=== PATIENT | male | born 1985 | race Caucasian/White ===

== ENCOUNTER 2025-04-09 13:37 | Emergency (ER) | payer OTHER, SELFPAY ==
--- OUTSIDE RECORDS SUMMARY | 2025-04-09 13:41 | XMS_ITS | Encounter Summary ---
Author Organization [facility] Address [address] [place] [address] Care Team Providers Care Campus Administrator Name Role Phone Oneyda Alejo MD Primary Care Provider [phone] Encounter Details Date Type Department Care Team (Late Contact Info) Description 03/11/2025 Results Follow-Up [facility] [employer] [place] [address] [place] [address] Oneyda Alejo MD [address] [place] [address] TSH, LIPID PANEL, COMPREHENSIVE METABOLIC PANEL, CBC WITH DIFFERENTIAL Social History Tobacco Use Types Packs/Day Years Used Date Smoking Tobacco: Some Days Cigarettes Smokeless Tobacco: Never Comments:i use nicotine but i do not use tabacco. e-cigarettes. Alcohol Use Standard Drinks/Week Comments No 0 (1 standard drink = 0.6 oz pur e alcohol) Sex and Gender Information Value Date Recorded Sex Assigned at Not on file Legal Sex Male 2:16 PM CDT Gender Identity Not on file Sexual Orientation Not on file documented as of this encounter Plan of Treatment Upcoming Encounters Date Type Department Care Team ([facility] Contact Info) Description 09/15/2025 8:00 AM CDT Office Visit [facility] [employer] [place] [address] [place] [address] Oneyda Alejo MD [address] [place] [address] documented as of this encounter Visit Diagnoses Not on filedocumented in this encounter Care Teams Campus Administrator Relationship Specialty Start Date End Date Oneyda Alejo MD [address] [place] [address] PCP - General Internal Medicine 07/15/24 documented as of this encounter
--- OUTSIDE RECORDS SUMMARY | 2025-04-09 13:41 | XMS_ITS | Clinical Summary ---
Author Organization [address] Address [address] [place] [address] Care Team Providers Care Knife Changer Name Role Phone No, Physician Primary Care Provider [phone] Allergies No known active allergies Medications lisinopril-hydro CHLOROthiazide (ZESTORETIC) 20-25 mg per tablet Take 1 tablet by mouth daily 09/16/2024 Active rosuvastatin (CRESTOR) 10 mg tablet Take 1 tablet (10 mg total) by mouth daily 09/16/2024 Active Active Problems No known active problems Medical History Medical History Date Comments Anxiety Hypertension Hyperlipidemia Social History Tobacco Use Types Packs/Day Years Used Date Smoking Tobacco: Never Smokeless Tobacco: Never Tobacco Cessation:Counseling Given: Not Answered Personal Safety Answer Date Recorded Have you ever been in or are you currently in a harmful physical or emotional relationship or is someone making you feel afraid or unsafe? Denies 10/18/2024 Sex and Gender Information Value Date Recorded Sex Assigned at Not on file Legal Sex Male 5:50 PM BELT LOOP MAKER Gender Identity Not on file Sexual Orientation Not on file Obstetrics History Last Filed Vital Signs Vital Sign Reading Time Taken Comments Blood Pressure 127/88 10/19/2024 12:45 AM BELT LOOP MAKER Pulse 93 10/19/2024 12:45 AM BELT LOOP MAKER Temperature 37.6 C (99.6 F) 10/18/2024 10:57 PM BELT LOOP MAKER Respiratory Rate 23 10/19/2024 12:45 AM BELT LOOP MAKER Oxygen Saturation 95% 10/19/2024 12:45 AM BELT LOOP MAKER Inhaled Oxygen Concentration - - Weight 86.2 kg (190 lb) 10/18/2024 10:57 PM BELT LOOP MAKER Height 165.1 cm (5' 5 ) 10/18/2024 10:57 PM BELT LOOP MAKER Body Mass Index 31.62 10/18/2024 10:57 PM BELT LOOP MAKER Plan of Treatment Health Maintenance Due Date Last Done Comments Depression Screening 1985 Hepatitis C Screening 1985 Varicella Vaccines (1 of 2 - 13+ 2-dose series) 1998 Regular Well Visit/Exam 18-64 2003 Covid-19 Vaccine ( - season) 2024 11/06/2021, 02/15/2021, 01/23/2021 DTaP/Tdap/Td Vaccine (7 - Td or Tdap) 07/19/2025 07/19/2015, 06/10/2000, 06/01/1991, Additional history exists Hepatitis B Screening Completed 04/17/2004, 004 Influenza Vaccine Completed 09/16/2024, , 08/09/2021, Additional history exists HPV Vaccines Aged Out No longer eligi ble based on patient's age to complete this topic Pneumococcal vaccine <65 Aged Out No longer eligible based on patient's age to complete this [place] [id number] Care Teams Knife Changer Relationship Specialty Start Date End Date No, Physician PCP - General 10/18/24
--- OUTSIDE RECORDS SUMMARY | 2025-04-09 13:41 | XMS_ITS | Clinical Summary ---
Author Organization [facility] [employer] [place] Address [address] [place] [address] Care Team Providers Care Automobile Engine Assembler Name Role Phone Oneyda Alejo MD Primary Care Provider [phone] Allergies No known active allergies Medications CHOLECALCIFEROL, VITAMIN D3, ORAL Take by mouth. Active busPIRone (BUSPAR) 10 mg tabletIndication s:Generalized anxiety disorder Take 1 Tablet (10 mg) by mouth 3 times daily as needed for Anxiety. 30 Tablet 1 03/19/2024 Active rosuvastatin (Crestor) 10 mg tabletIndication s:hyperlipidemia Take 1 Tablet (10 mg) by mouth daily. 90 Tablet 01/26/2025 Active lisinopril-hydro CHLOROthiazide (ZESTORETIC) 20-25 mg tabletIndication s:HTN (hypertension), benign Take 1 Tablet by mouth daily. 90 Tablet 01/26/2025 Active CYANOCOBALAMIN, VITAMIN B-12, ORAL Take by mouth. Active Active Problems Problem Noted Date Diagnosed Date Hyperlipidemia 03/17/2025 Obesity (BMI 30.0-34.9) 03/17/2025 Vitamin D deficiency 03/17/2025 Generalized anxiety disorder 08/19/2023 HTN (hypertension), benign 01/09/2022 Nicotine abuse 08/09/2021 Encounters Date Type Department Care Team Description 03/17/2025 8:30 AM CDT Office Visit [facility] [place] [address] [place] [address] Oneyda Alejo MD Routine physical examination (Primary Dx); HTN (hypertension), benign; Hyperlipidemia, unspecified hyperlipidemia type; Obesity (BMI 30.0-34.9); Vitamin D deficiency; Nicotine abuse; Generalized anxiety disorder 03/11/2025 Results Follow-Up [facility] at [place] [address] [place] [phone] Oneyda Alejo MD TSH, LIPID PANEL, COMPREHENSIVE METABOLIC PANEL, CBC WITH DIFFERENTIAL 03/10/2025 8:40 AM CDT Office Visit [facility] at [place] [address] [phone] Screening for condition (Primary Dx) 01/27/2025 2:00 PM SENIOR PORTFOLIO ANALYST Procedure visit [facility] at [place] [address] [facility] [address] [place] [address] Issue of repeat prescription (Primary Dx) 01/26/2025 Refill [facility] [employer] [place] [address] [address] Oneyda Alejo MD Hyperlipidemia, unspecified hyperlipidemia type; HTN (hypertension), benign 01/18/2025 External Device Data [facility] ABSTRACTION Provider, Abstract from Last 3 Months Immunizations Immunization Administration Dates Next Due (ADACEL/BOOSTRIX)(10 YR UP) TDAP VACCINE, 0.5ML, IM 07/19/2015 (PFIZER)(12 YR UP) COVID-19 VACCINE - EMERGENCY USE AUTHORIZATION, MRNA, [id number](PF) 30 MCG/0.3 ML IM SUSP 11/06/2021,02/15/2021,01/23/2021 INFLUENZA VACCINE QUADRIVALE NT 3 YR UP PF IM 09/05/2017 INFLUENZA VACCINE QUADRIVALENT 6 MOS UP IM 08/25,09/21/2018 INFLUENZA VACCINE QUADRIVALE NT 6 MOS UP PF IM 08/20/2023,08/09/2021,08/23/2020 INFLUENZA VACCINE TRIVALENT SPLIT VIRUS, (6 MOS UP), 0.5ML (PF), IM 09/16/2024 Family History Medical History Relation Name Comments Lung Cancer Father Romeo Goyal No Known Problems Half-Sister Alcohol abuse Maternal Grandfather Liver Disease Maternal Grandfather Ibis Gerhig's Disease Maternal Grandmother Depression Mother Diabetes Mother Unknown Paternal Grandfather Breast Cancer Paternal Grandmother No Known Problems Son Relation Name Status Comments Father Romeo Goyal (Age 75) Half-Sister Alive Maternal Grandfather Maternal Grandmother Mother Alive Paternal Grandfather Paternal Grandmother Son Alive Social History Tobacco Use Types Packs/Day Years Used Date Smoking Tobacco: Former Cigarettes 2016 Smokeless Tobacco: Never Tobacco Cessation:Counseling Given: Not Answered Comments:i use nicotine but i do not use tabacco. e-cigarettes. Alcohol Use Standard Drinks/Week Comments No 0 (1 standard drink = 0.6 oz pur e alcohol) Sex and Gender Information Value Date Recorded Sex Assigned at Not on file Legal Sex Male 2:16 PM CDT Gender Identity Not on file Sexual Orientation Not on file Last Filed Vital Signs Vital Sign Reading Time Taken Comments Blood Pressure 126/78 03/17/2025 7:56 AM CDT Pulse 84 03/17/2025 7:56 AM CDT Temperature 36.6 C (97.9 F) 03/17/2025 7:56 AM CDT Respiratory Rate 16 03/17/2025 7:56 AM CDT Oxygen Saturation 98% 03/17/2025 7:56 AM CDT Inhaled Oxygen Concentration - - Weight 88.5 kg (195 lb) 03/17/2025 7:56 AM CDT Height 167.6 cm (5' 6 ) 03/17/2025 7:56 AM CDT Body Mass Index 31.47 03/17/2025 7:56 AM CDT Plan of Treatment Upcoming Encounters Date Type Department Care Team (Late st Contact Info) Description 09/15/2025 8:00 AM CDT Office Visit [facility] [place] [address] [place] [address] Oneyda Alejo MD [address] [place] [address] Health Maintenance Due Date Last Done Comments HEPATITIS B VACCINES (1 of 3 - 19+ 3-dose series) 2004 COVID-19 Vaccine (4 - 2024-25 season) 2024 11/06/2021, 02/15/2021, 01/23/2021 DTAP/TDAP/TD VACCINES (2 - Td or Tdap) 07/19/2025 07/19/2015 Pre-Diabetes and Diabetes Screening 12/12/2025 12/12/2022, 02/08/2022, 08/23/2021 INFLUENZA VACCINE Completed 09/16/2024, , 08/09/2021, Additional history exists HPV VACCINES Aged Out No longer eligi ble based on patient's age to complete this topic Procedures Procedure Name Priority Date/Time Associated Diagnosis Comments CBC WITH DIFFERENTIAL Routine 03/10/2025 7:47 AM CDT Screening for condition COMPREHENSIVE METABOLIC PANEL Routine 03/10/2025 7:47 AM CDT Screening for condition LIPID PANEL Routine 03/10/2025 7:47 AM CDT Screening for condition TSH Routine 03/10/2025 7:47 AM CDT Screening for condition HEMOGLOBIN A1C Routine 12/12/2022 9:23 AM SENIOR PORTFOLIO ANALYST Encounter for routine adult health examination with abnormal findings from Last 3 Months or Most Recently Relevant to Health Maintenance Results * (ABNORMAL) CBC WITH DIFFERENTIAL (03/10/2025 7:47 AM CDT) WBC 5.4 3.8 - 10.8 Thousand/ uL [facility] RBC 5.66 4.20 - 5.80 Million/u L [facility] HEMOGLOBIN 17.2(H) 13.2 - 17.1 g/dL [facility] HEMATOCRIT 52.5(H) 38.5 - 50.0 % [facility] MCV 92.8 80.0 - 100.0 fL [facility] MCH 30.4 27.0 - 33.0 pg [facility] MCHC 32.8 32.0 - 36.0 g/dL [facility] Comment: For adults, a slight decrease in the calculated MCHC value (in the range of 30 to 32 g/dL) is most likely not clinically significant; however, it should be interpreted with caution in correlation with other red cell parameters and the patient's clinical condition. RDW 13.1 11.0 - 15.0 % [facility] PLATELETS 295 140 - 400 Thousand/ uL [facility] MPV 9.5 7.5 - 12.5 fL [facility] NEUTROPHIL ABSOLUTE 3,305 1,500 - 7,800 cells/uL [facility] LYMPHOCYTE ABSOLUTE 1,285 850 - 3,900 cells/uL [facility] MONOCYTE ABSOLUTE 610 200 - 950 cells/uL [facility] EOSINOPHIL ABSOLUTE 119 15 - 500 cells/uL [facility] BASOPHILS ABSOLUTE 81 0 - 200 cells/uL [facility] NEUTROPHIL 61.2 % [facility] LYMPHOCYTES 23.8 % [facility] MONOCYTE 11.3 % [facility] EOSINOPHILS 2.2 % [facility] BASOPHILS 1.5 % [facility] Comment: Test Performed at: [place] [address] [address] [place] [phone] [facility] Vo Blood 03/10/2025 7:47 AM CDT 03/11/2025 4:36 AM CDT Oneyda Alejo MD HEMATOLOGY ORDERABLES Final Re sult [facility] [phone] [place] [address] [address] [place] [phone] * TSH (03/10/2025 7:47 AM CDT) TSH 1.72 0.40 - 4.50 mIU/L [facility] Comment: Test Performed at: [email or web address] [address] [address] [place] [phone] [facility] Vo Blood 03/10/2025 7:47 AM CDT 03/11/2025 4:36 AM CDT us Oneyda Alejo MD CHEMISTRY ORDERABLES Final Res ult [facility] [phone] [place] [address] [address] [place] [phone] * (ABNORMAL) LIPID PANEL (03/10/2025 7:47 AM CDT) CHOLESTEROL 130 <200 mg/dL [facility] HDL 38(L) > OR = 40 mg/dL [facility] [employer] [facility] TRIGLYCERIDE 68 <150 mg/dL [facility] [employer] [facility] LDL CALCULATED 78 mg/dL (calc) [facility] Comment: Reference range: <100 Desirable range <100 mg/dL for primary prevention; <70 mg/dL for patients with CHD or diabetic patients with > or = 2 CHD risk factors. LDL-C is now calculated using the Brigido calculation, which is a validated novel method providing better accuracy than the Friedewald equation in the estimation of LDL-C. Robert PARIKH et al. SAL. 2013;310(19): 7696-6725 (http://education.[employer]/faq/XKK623) CHOL/HDL RATIO 3.4 <5.0 (calc) [facility] NON-HDL CHOLESTEROL 92 <130 mg/dL (calc) [email or web address] Comment: For patients with diabetes plus 1 major ASCVD risk factor, treating to a non-HDL-C goal of <100 mg/dL (LDL-C of <70 mg/dL) is considered a therapeutic option. Test Performed at: [place] [address] [address] [place] [phone] [facility] Blood 03/10/2025 7:47 AM CDT 03/11/2025 4:36 AM CDT us Oneyda Alejo MD CHEMISTRY ORDERABLES Final Res ult [facility] [phone] [place] [address] Administration [place] [phone] * COMPREHENSIVE METABOLIC PANEL (03/10/2025 7:47 AM CDT) GLUCOSE 96 65 - 99 mg/dL [facility] Comment: Fasting reference interval BUN 22 7 - 25 mg/dL [facility] CREATININE 1.10 0.60 - 1.26 mg/dL [facility] EGFR 88 > OR = 60 mL/min/1. 73m2 [facility] BUN/CREAT RATIO SEE NOTE: 6 - 22 (calc) [facility] Comment: Not Reported: BUN and Creatinine are within reference range. SODIUM 140 135 - 146 mmol/L [facility] [employer] [facility] POTASSIUM 4.2 3.5 - 5.3 mmol/L [facility] CHLORIDE 103 98 - 110 mmol/L [facility] CO2 25 20 - 32 mmol/L [facility] CALCIUM 9.5 8.6 - 10.3 mg/dL [facility] TOTAL PROTEIN 6.7 6.1 - 8.1 g/dL [facility] ALBUMIN 4.7 3.6 - 5.1 g/dL [facility] GLOBULIN 2.0 1.9 - 3.7 g/dL (calc) [facility] ALBUMIN/GLOBULIN RATIO 2.4 1.0 - 2.5 (calc) [facility] BILIRUBIN TOTAL 0.5 0.2 - 1.2 mg/dL [facility] [employer] [facility] ALKALINE PHOSPHATASE 57 36 - 130 U/L [facility] AST 19 10 - 40 U/L [facility] ALT 30 9 - 46 U/L [facility] Comment: Test Performed at: [place] [address] [address] [place] [phone] [facility] Blood 03/10/2025 7:47 AM CDT 03/11/2025 4:36 AM CDT us Oneyda Alejo MD CHEMISTRY ORDERABLES Final Res ult [facility] [phone] [facility] [place] [address] Administration [place] [phone] * HEMOGLOBIN A1C (12/12/2022 9:23 AM SENIOR PORTFOLIO ANALYST) HEMOGLOBIN A1C 5.0 <5.7 % of total Hgb [email or web address] Comment: For the purpose of screening for the presence of diabetes: <5.7% Consistent with the absence of diabetes 5.7-6.4% Consistent with increased risk for diabetes (prediabetes) > or =6.5% Consistent with diabetes This assay result is consistent with a decreased risk of diabetes. Currently, no consensus exists regarding use of hemoglobin A1c for diagnosis of diabetes in children. According to [place] Diabetes Association (ADA) guidelines, hemoglobin A1c <7.0% represents optimal control in non- diabetic patients. Different metrics may apply to specific patient populations. Standards of Medical Care in Diabetes(ADA). ESTIMATED AVERAGE GLUCOSE (MG/DL) 97 mg/dL [email or web address] ESTIMATED AVERAGE GLUCOSE (MMOL/L) 5.4 mmol/L [email or web address] Comment: Test Performed at: [employer] [address] [place] [address] Chilo Schmid D.O., MPH Blood 12/12/2022 9:23 AM SENIOR PORTFOLIO ANALYST 12/13/2022 5:03 AM SENIOR PORTFOLIO ANALYST Neena Trujillo [facility] CHEMISTRY ORDERABLES F inal Result [facility] [phone] [employer] [address] [place] [address] from Last 3 Months or Most Recently Relevant to Health Maintenance Insurance [employer] * Guarantor: [employer] Account Type Relation to Patient Date of Phone Billing Address Corporate Employer ATTN: BERNARDO TYLER [address] [address] Care Teams Automobile Engine Assembler Relationship Specialty Start Date End Date Oneyda Alejo MD [address] [place] [address] PCP - General Internal Medicine 07/15/24
--- OUTSIDE RECORDS SUMMARY | 2025-04-09 13:41 | XMS_ITS | Clinical Summary ---
Author Organization [facility] Address [address] [place] [address] Care Team Providers Care Lease Operator Name Role Phone Unavailable Primary Care Provider Unavailabl e Social History Tobacco Use Types Packs/Day Years Used Date Smoking Tobacco: Never Assessed Sex and Gender Information Value Date Recorded Sex Assigned at Not on file Legal Sex Male 5:32 PM CDT Gender Identity Not on file Sexual Orientation Not on file Plan of Treatment Health Maintenance Due Date Last Done Comments Annual Physical 1988 Hepatitis C 2003 DTaP, Tdap and Td Vaccines ( 1 - Tdap) 2004 Hepatitis B Vaccines (1 of 3 - 19+ 3-dose series) 2004 COVID-19 Vaccine ( - 2023-2 5 season) 2024 HPV Vaccines Aged Out No longer eligi ble based on patient's age to complete this topic Meningococcal B Vaccine Aged Out No l onger eligible based on patient's age to complete this topic Meningococcal Vaccine Aged Out No josef teresa eligible based on patient's age to complete this topic Pneumococcal Vaccine: Pediat rics (0 to 5 Years) and At-Risk Patients (6 to 49 Years) Aged Out No longer eligible b ased on patient's age to complete this topic RSV Immunizations Under 20 Months Aged Out No longer eligible based on patient's age to complete this topic
--- OUTSIDE RECORDS SUMMARY | 2025-04-09 13:41 | XMS_ITS | Referral Summary ---
Author Organization [address] Address [address] [place] [address] Care Team Providers Care Assistant Grocery Store Manager Name Role Phone No, Physician Primary Care Provider [phone] Allergies No known active allergies Medications lisinopril-hydro CHLOROthiazide (ZESTORETIC) 20-25 mg per tablet Take 1 tablet by mouth daily 09/16/2024 Active rosuvastatin (CRESTOR) 10 mg tablet Take 1 tablet (10 mg total) by mouth daily 09/16/2024 Active Active Problems No known active problems Social History Tobacco Use Types Packs/Day Years [...] on file Legal Sex Male 5:50 PM CHAMBER WALKER Gender Identity Not on file Sexual Orientation Not on file Last Filed Vital Signs Vital Sign Reading Time Taken Comments Blood Pressure 127/88 10/19/2024 12:45 AM CHAMBER WALKER Pulse 93 10/19/2024 12:45 AM CHAMBER WALKER Temperature 37.6 C (99.6 F) 10/18/2024 10:57 PM CHAMBER WALKER Respiratory Rate 23 10/19/2024 12:45 AM CHAMBER WALKER Oxygen Saturation 95% 10/19/2024 12:45 AM CHAMBER WALKER Inhaled Oxygen Concentration - - Weight 86.2 kg (190 lb) 10/18/2024 10:57 PM CHAMBER WALKER Height 165.1 cm (5' 5 ) 10/18/2024 10:57 PM CHAMBER WALKER Body Mass Index 31.62 10/18/2024 10:57 PM CHAMBER WALKER Plan of Treatment Not on file Insurance [employer] Care Teams Assistant Grocery Store Manager Relationship Specialty Start Date End Date No, Physician PCP - General 10/18/24
[2025-04-09 13:47] VITALS: BP 133/76; PULSE 86; RESP 16; TEMP 36.8; O2SAT 99
--- NOTE | 2025-04-09 14:24 | ED.GENADULT ---
HPI - General Adult General Chief complaint: Skin/Abscess/Foreign Body Stated complaint: pos poison tatianna on right toe Source: patient Mode of arrival: ambulatory Limitations: no limitations History of Present Illness HPI narrative: Pt presents for evaluation of a pruritic rash. Symptoms initially started on the right foot about 1.5 weeks ago. He now has involvement both lower extremities, right-sided his waist, and both upper extremities. No history of similar symptoms. He has not used any new lotions, soaps, detergents, topical products. He was working out in the yard and may have been exposed to poison tatianna. His know his symptoms on the left side of her neck. Related Data Home Medications Medication Instructions Recorded Confirmed Last Taken Type lisinopril-hydrochlorothiazide .ROUTE 04/09/25 Unknown History rosuvastatin .ROUTE 04/09/25 Unknown History Allergies Allergy/AdvReac Type Severity Reaction Status Date / Time No Known Allergies Allergy Mild Unverified 04/09/25 13:51 Review of Systems Review of Systems: CONSTITUTIONAL: Denies fever, chills, or sweats. EYES: Denies visual changes, redness, or discharge. ENT: Denies rhinorrhea, congestion, sore throat, or otalgia. CARDIOVASCULAR: Denies chest pain, palpitations, or edema. RESPIRATORY: Denies cough or dyspnea. GASTROINTESTINAL: Denies abdominal pain, nausea, vomiting, or diarrhea. GENITOURINARY: Denies dysuria or hematuria. SKIN: Reports pruritic rash to extremities x 4 and right side of his waistline MUSCULOSKELETAL: Denies back pain, joint pain, or myalgia. NEUROLOGIC: Denies headache, numbness, dizziness, or weakness. PSYCHIATRIC: Denies anxiety or depression. [facility] Past Medical History Medical History No pertinent past medical history Surgical History Surgical History No pertinent past surgical history Family History Family History Mother Family history non-contributory Social History Social History Alcohol intake: current Alcohol use details: social Living arrangements: with family Gender identity (if verbalized by the patient): Male Sexual Orientation (if Verbalized by the Patient): Straight or Heterosexual Spiritual care concerns: No Exam Narrative: GENERAL: Well-appearing, well-nourished, and in no acute distress. HEAD: Normocephalic, atraumatic. EYES: PERRLA and EOMI. ENT: Nares clear, no rhinorrhea or epistaxis. Mucous membranes moist. Oropharynx without tonsillar hypertrophy exudate or other lesions. Bilateral TMs pearly douglas nonbulging NECK: Supple. No adenopathy or masses. No carotid bruits or JVD CHEST: Clear to auscultation. No respiratory distress. No wheezes rales or rhonchi HEART: Regular rate and rhythm. No murmur heard. Normal peripheral pulses. ABDOMEN: Soft, nontender, nondistended, normal active bowel sounds. EXTREMITIES: Normal range of motion. No edema. SKIN: There are clusters of erythematous raised vesicles to the extremities x4 and right lower aspect of his abdomen. There are linear scratch sousa and some areas that have dried sanguinous drainage present NEURO: No focal deficits. Alert and oriented x3. PSYCH: Normal mood and affect. Course Course Emergency Course: This is a 39-year-old male who presented for evaluation of a pruritic rash. This is consistent with poison tatianna dermatitis. Will discharge with prednisone and Benadryl. Advised he take Benadryl to assist with itching. Application of cool compresses may help. Follow up with primary provider. Go to the ER for worsening symptoms. Patient in agreement with plan of care Level of Care: Express Care Visit Vital Signs Vital signs: Vital Signs Temperature 36.8 C 04/09/25 13:47 Pulse Rate 86 04/09/25 13:47 Respiratory Rate 16 04/09/25 13:47 Blood Pressure 133/76 04/09/25 13:47 Pulse Oximetry 99 04/09/25 13:47 Oxygen Delivery Room Air 04/09/25 13:47 Temperature 36.8 C 04/09/25 13:47 Pulse Rate 86 04/09/25 13:47 Respiratory Rate 16 04/09/25 13:47 Blood Pressure 133/76 04/09/25 13:47 Pulse Oximetry 99 04/09/25 13:47 Oxygen Delivery Room Air 04/09/25 13:47 Medical Decision Making Vital Signs Vital Signs: Vital Signs Temperature 36.8 C 04/09/25 13:47 Pulse Rate 86 04/09/25 13:47 Respiratory Rate 16 04/09/25 13:47 Blood Pressure 133/76 04/09/25 13:47 Pulse Oximetry 99 04/09/25 13:47 Oxygen Delivery Room Air 04/09/25 13:47 Temperature 36.8 C 04/09/25 13:47 Pulse Rate 86 04/09/25 13:47 Respiratory Rate 16 04/09/25 13:47 Blood Pressure 133/76 04/09/25 13:47 Pulse Oximetry 99 04/09/25 13:47 Oxygen Delivery Room Air 04/09/25 13:47 Discharge Plan Discharge Clinical Impression: Poison tatianna dermatitis Patient Disposition: Home Condition: Stable Instructions: Antibiotic Form, Poison Tatianna (ED) Patient Language: Italian Prescriptions: New prednisone 20 mg tablet See Rx Instructions .ROUTE .COMPLEX Qty: 18 0RF Rx Instructions: take 2 tabs po daily x 5 days, then 1 tab po daily x 5 days, then 1/2 tab po daily x 6 days diphenhydramine HCl [Benadryl] 25 mg capsule 25 - 50 mg PO Q4-6H PRN (Reason: allergic reaction) Qty: 60 0RF No Action lisinopril-hydrochlorothiazide .ROUTE rosuvastatin .ROUTE Follow-up/Referrals: Josee Moya DO [Physician] - Time of Disposition: 14:18
== END 2025-04-09 14:27 | disposition home or self-care (01) ==
PROVIDERS: Emergency Provider Nurse Practitioner
DX: L23.7 Allergic contact dermatitis due to plants, except food (principal)
CPT/HCPCS: 99203; G0463